=== PATIENT | male | born 1950 | race Two or more races ===

== ENCOUNTER 2017-11-19 00:11 | Inpatient (IN) | payer MEDICAID, OTHER ==
[~2017-11-19] VITALS: Ht 160 cm; Wt 50.5 kg
[2017-11-19] VITALS (10 sets, daily range): BP systolic 78–110; BP diastolic 60–79
[2017-11-19] MEDS ORDERED: SUCCINYLCHOLINE CHLORIDE 20 MG/ML 10ML VIAL IV ONE ×2 (00:51→01:00)
[2017-11-19] MEDS ORDERED: ETOMIDATE (2MG/ML) 20ML VIAL IV ONE ×2 (00:52→01:00)
[2017-11-19] MEDS ORDERED: MIDAZOLAM DRIP 50 mg/50mL 50 ML IV ONE (01:03)
[2017-11-19 01:08] LABS: Hematocrit 48.8 % (41.0-53.0); Hemoglobin 16.8 g/dL (13.5-17.5); Mean Corpuscular Hemoglobin 32.2 pg (28.0-32.0); Mean Corpuscular Hgb Conc. 34.4 g/dL (32.0-36.0); Mean Corpuscular Volume 93.7 fL (80.0-100.0); Platelet Count (auto) 222 10^3/uL (140-450); Red Blood Cells 5.21 10^6/uL (4.5-5.90); Red Cell Distribution Width 14.4 % (11.8-14.3); White Blood Cell 12.3 10^3/uL (4.4-10.8)
[2017-11-19 01:09] LABS: Band Neutrophils % (manual) 0; Basophils % (manual) 0 (0.0-2.0); Blast Cells 0; Metamyelocytes % 0; Myelocytes % 0; Promyelocytes % 0; Reactive Lymphocytes 0
[2017-11-19] MEDS: MIDAZOLAM DRIP 50 mg/50mL 50 ML IV SCH ×2 (01:14→21:19)
[2017-11-19 01:24] LABS: Albumin 2.7 g/dL (3.4-5.0); Calcium 8.9 mg/dL (8.5-10.1); Magnesium 2.7 mg/dL (1.6-2.6)
[2017-11-19 01:26] LABS: BUN/Creatinine Ratio 31.6
[2017-11-19 01:28] LABS: Bilirubin, Total 0.8 mg/dL (0.2-1.0); Total Protein 7.5 g/dL (6.4-8.2)
[2017-11-19 01:29] LABS: Potassium 5.6 mmol/L (3.5-5.1)
[2017-11-19 01:35] LABS: Eosinophils % (manual) 1 (0-7); Lymphocytes % (manual) 7 (10.0-50.0); Monocytes % (manual) 3 (0-12)
[2017-11-19] MEDS ORDERED: VANCOMYCIN 1GM/250ML 250 ML IV ONE (01:45)
[2017-11-19] MEDS ORDERED: SODIUM CHLORIDE 0.9% 1,000 ML IV ONE ×3 (01:45→05:00)
[2017-11-19] MEDS ORDERED: SODIUM CHLORIDE 0.9% 500 ML IV ONE ×2 (01:45→06:30)
[2017-11-19] MEDS ORDERED: PIPERACILLIN-TAZOB 3.375GM 50 ML IV ONE (01:45)
[2017-11-19 02:55] LABS: INR 1.1 (0.9-1.15); Partial Thromboplastin Time 29.4 sec (22.64-33.71)
[2017-11-19] MEDS ORDERED: SODIUM BICARBONATE 8.4 % INJ 50ML VIAL IV ONE (03:00)
[2017-11-19 03:02] LABS: Lactic Acid w/Reflex 3.4 mmol/L (0.4-2.0)
[2017-11-19 03:46] LABS: Albumin 2.2 g/dL (3.4-5.0); BUN/Creatinine Ratio 35.8
[2017-11-19 03:48] LABS: Bilirubin, Total 1.2 mg/dL (0.2-1.0); Total Protein 5.8 g/dL (6.4-8.2)
[2017-11-19 04:58] LABS: Urine Bacteria NONE SEEN /hpf (None Seen); Urine Blood TRACE /uL (Negative); Urine Hyaline Cast FEW /lpf (0 - 2); Urine Mucus FEW (None Seen); Urine Specific Gravity 1.021 (1.001-1.035); Urine WBC 8 /hpf (0 - 3)
[2017-11-19] MEDS: NOREPINEPHRINE 8 MG/250ML KIT 250 ML IV SCH ×2 (05:52→21:18)
[2017-11-19] MEDS ORDERED: LACTATED RINGER'S 1,000 ML IV ONE (06:15)
[2017-11-19] MEDS ORDERED: NITROGLYCERIN 0.4 MG SL TAB SL PRN (06:30)
[2017-11-19] MEDS ORDERED: ACETAMINOPHEN 325 MG TAB PO PRN (06:30)
[2017-11-19] MEDS ORDERED: VANCOMYCIN PER PHARMACY 0 MG IV SCH (06:30)
[2017-11-19] MEDS ORDERED: ONDANSETRON HCL 4 MG/2 ML VIAL IV PRN (06:30)
[2017-11-19] MEDS ORDERED: MORPHINE SULFATE 4 MG/ML SYR/VIAL IV PRN (06:30)
[2017-11-19] MEDS ORDERED: ENOXAPARIN SOD 60 MG/0.6 ML SYRINGE SC ONE (07:15)
[2017-11-19] MEDS ORDERED: SODIUM CHLORIDE 0.9% 1,000 ML IV SCH (07:30)
[2017-11-19] MEDS ORDERED: IOHEXOL 350 MG/ML 100ML IJ ONE (08:46)
[2017-11-19] MEDS: PIPERACILLIN-TAZOB 3.375GM 50 ML IV SCH ×3 (09:52→21:42)
[2017-11-19] MEDS ORDERED: ENOXAPARIN SOD 40 MG/0.4 ML SYRINGE SC SCH (10:00)
[2017-11-19] MEDS: IPRATROPIUM BROM 0.5 MG/2.5ML INH SOL NEB SCH ×4 (10:45→22:06)
[2017-11-19] MEDS: ALBUTEROL SULF 2.5 MG/0.5ML(0.5%) NEB SOLN NEB SCH ×4 (10:45→22:06)
[2017-11-19] MEDS: PANTOPRAZOLE 40 MG/10 ML VIAL IV SCH (11:13)
[2017-11-19] MEDS: SODIUM CHLORIDE 0.9% 1,000 ML IV SCH (15:26)
[2017-11-19 15:56] LABS: BUN/Creatinine Ratio 42.6; Calcium 7.6 mg/dL (8.5-10.1); Potassium 4.6 mmol/L (3.5-5.1)
[2017-11-20] VITALS (12 sets, daily range): BP systolic 82–134; BP diastolic 55–86
[2017-11-20] MEDS: SODIUM CHLORIDE 0.9% 1,000 ML IV SCH (01:33)
[2017-11-20] MEDS: IPRATROPIUM BROM 0.5 MG/2.5ML INH SOL NEB SCH ×6 (02:17→21:56)
[2017-11-20] MEDS: ALBUTEROL SULF 2.5 MG/0.5ML(0.5%) NEB SOLN NEB SCH ×6 (02:17→21:57)
[2017-11-20] MEDS: VANCOMYCIN 750 MG in D5W 5% 250 ML IV SCH (02:24)
[2017-11-20] MEDS ORDERED: fentaNYL Drip 2500mCg/250mlNS 250 ML IV SCH (04:13)
[2017-11-20] MEDS: PIPERACILLIN-TAZOB 3.375GM 50 ML IV SCH ×4 (04:32→22:14)
[2017-11-20] MEDS ORDERED: [UNRECOGNIZED DRUG - OTHER] IV SCH (04:33)
[2017-11-20] MEDS ORDERED: FENTANYL DRIP IV SCH (04:33)
[2017-11-20 06:20] LABS: Basophils # (auto) 0 uL; Basophils % (auto) 0.4 % (0.0-2.0); Eosinophils # (auto) 0 uL; Eosinophils % (auto) 0.2 % (0.0-7.0); Hematocrit 31.4 % (41.0-53.0); Lymphocytes # (auto) 0.2 uL; Lymphocytes % (auto) 2.5 % (10.0-50.0); Mean Corpuscular Hemoglobin 32.7 pg (28.0-32.0); Mean Corpuscular Hgb Conc. 35.1 g/dL (32.0-36.0); Mean Corpuscular Volume 93.1 fL (80.0-100.0); Monocytes # (auto) 0.3 uL; Monocytes % (auto) 3.7 % (0.0-12.0); Neutrophils # (auto) 8.4 uL; Neutrophils % (auto) 93.2 % (37.0-80.0); Platelet Count (auto) 217 10^3/uL (140-450); Red Blood Cells 3.37 10^6/uL (4.5-5.90); Red Cell Distribution Width 14.2 % (11.8-14.3)
[2017-11-20 06:31] LABS: Albumin 1.8 g/dL (3.4-5.0); BUN/Creatinine Ratio 32.8; Bilirubin, Total 0.5 mg/dL (0.2-1.0); Calcium 7.7 mg/dL (8.5-10.1); Total Protein 5.4 g/dL (6.4-8.2)
[2017-11-20 06:59] LABS: Urine WBC None Seen /hpf (0 - 3)
[2017-11-20 07:49] LABS: Urine Amorphous Crystal MANY /hpf (None Seen); Urine Bacteria NONE SEEN /hpf (None Seen); Urine Blood Negative /uL (Negative); Urine Specific Gravity 1.042 (1.001-1.035)
[2017-11-20] MEDS: D5 IV SCH ×2 (09:40→19:30)
[2017-11-20] MEDS: SODIUM BICARBONATE IV SCH ×2 (09:40→19:30)
[2017-11-20] MEDS: SOD CHLO IV SCH ×2 (09:40→19:30)
[2017-11-20] MEDS: PANTOPRAZOLE 40 MG/10 ML VIAL IV SCH (09:52)
[2017-11-20] MEDS: ENOXAPARIN SOD 30 MG/0.3 ML SYRINGE SC SCH (09:52)
[2017-11-21] VITALS (81 sets, daily range): BP systolic 73–161; BP diastolic 48–97
[2017-11-21] MEDS: MIDAZOLAM DRIP 50 mg/50mL 50 ML IV SCH (01:13)
[2017-11-21] MEDS: VANCOMYCIN 750 MG in D5W 5% 250 ML IV SCH (01:41)
[2017-11-21] MEDS: ALBUTEROL SULF 2.5 MG/0.5ML(0.5%) NEB SOLN NEB SCH ×6 (01:57→22:12)
[2017-11-21] MEDS: IPRATROPIUM BROM 0.5 MG/2.5ML INH SOL NEB SCH ×6 (01:57→22:12)
[2017-11-21] MEDS: PIPERACILLIN-TAZOB 3.375GM 50 ML IV SCH ×4 (03:00→21:00)
[2017-11-21] MEDS: NOREPINEPHRINE 8 MG/250ML KIT 250 ML IV SCH (05:14)
[2017-11-21 08:12] LABS: Basophils # (auto) 0 uL; Basophils % (auto) 0.1 % (0.0-2.0); Eosinophils # (auto) 0.1 uL; Eosinophils % (auto) 0.8 % (0.0-7.0); Hematocrit 32.6 % (41.0-53.0); Hemoglobin 11.2 g/dL (13.5-17.5); Lymphocytes # (auto) 0.2 uL; Lymphocytes % (auto) 2.2 % (10.0-50.0); Mean Corpuscular Hemoglobin 32.3 pg (28.0-32.0); Mean Corpuscular Hgb Conc. 34.4 g/dL (32.0-36.0); Monocytes # (auto) 0.2 uL; Monocytes % (auto) 2.5 % (0.0-12.0); Neutrophils # (auto) 8.8 uL; Neutrophils % (auto) 94.4 % (37.0-80.0); Platelet Count (auto) 172 10^3/uL (140-450); Red Blood Cells 3.46 10^6/uL (4.5-5.90); Red Cell Distribution Width 14.5 % (11.8-14.3); White Blood Cell 9.3 10^3/uL (4.4-10.8)
[2017-11-21 08:37] LABS: Calcium 7.2 mg/dL (8.5-10.1); Magnesium 1.7 mg/dL (1.6-2.6); Potassium 3.1 mmol/L (3.5-5.1)
[2017-11-21] MEDS ORDERED: DEXTROSE (50%) 50ML SYRG IV PRN (08:45)
[2017-11-21] MEDS: SOD CHL 0.9%/ KCL 40MEQ 1,000 ML IV SCH ×2 (10:50→21:00)
[2017-11-21] MEDS: PANTOPRAZOLE 40 MG/10 ML VIAL IV SCH (10:50)
[2017-11-21] MEDS: ENOXAPARIN SOD 30 MG/0.3 ML SYRINGE SC SCH (10:51)
[2017-11-21] MEDS: ACCU-CHEK COMFORT CURVE STRIP VI SCH ×2 (12:00→18:06)
[2017-11-21] MEDS ORDERED: POTASSIUM CHL 10% (20 MEQ/15ML) 15ml ORAL SOLN GT ONE (12:30)
[2017-11-21] MEDS ORDERED: LIDOCAINE 1% HCL (LOCAL ANESTH.) INJ 20ML MDV ID ONE (13:00)
[2017-11-21] MEDS: InsuLIN REG 1unit/0.01ml Soln (100units/ml) SC SCH ×2 (13:30→18:00)
[2017-11-21] MEDS: DEXAMETHASONE SOD PHOS 4 MG/1ML SDV INJ IV SCH ×2 (16:51→22:00)
[2017-11-21] MEDS: ALBUMIN 25% 100 ML IV SCH (18:00)
[2017-11-21] MEDS: ENOXAPARIN SOD 40 MG/0.4 ML SYRINGE SC SCH (22:00)
[2017-11-21] MEDS: SODIUM CHLOR 0.9% PF (SALINE LOCK) 10ML VIAL IV SCH (22:00)
[2017-11-21] MEDS ORDERED: ACETAMINOPHEN 650 mg PER 20 mL UD ONE (23:27)
[2017-11-22] VITALS (75 sets, daily range): BP systolic 109–153; BP diastolic 51–84
[2017-11-22] MEDS: InsuLIN REG 1unit/0.01ml Soln (100units/ml) SC SCH ×4 (00:46→18:02)
[2017-11-22] MEDS: ACCU-CHEK COMFORT CURVE STRIP VI SCH ×4 (00:46→17:58)
[2017-11-22 01:03] LABS: Basophils # (auto) 0 uL; Basophils % (auto) 0.3 % (0.0-2.0); Eosinophils # (auto) 0 uL; Eosinophils % (auto) 0.2 % (0.0-7.0); Hematocrit 28.3 % (41.0-53.0); Hemoglobin 9.8 g/dL (13.5-17.5); Lymphocytes # (auto) 0.1 uL; Lymphocytes % (auto) 1.1 % (10.0-50.0); Mean Corpuscular Hemoglobin 32.6 pg (28.0-32.0); Mean Corpuscular Hgb Conc. 34.7 g/dL (32.0-36.0); Mean Corpuscular Volume 94.1 fL (80.0-100.0); Monocytes # (auto) 0.1 uL; Monocytes % (auto) 0.9 % (0.0-12.0); Neutrophils # (auto) 9.4 uL; Neutrophils % (auto) 97.5 % (37.0-80.0); Platelet Count (auto) 145 10^3/uL (140-450); Red Blood Cells 3.01 10^6/uL (4.5-5.90); Red Cell Distribution Width 14.4 % (11.8-14.3); White Blood Cell 9.6 10^3/uL (4.4-10.8)
[2017-11-22 01:13] LABS: BUN/Creatinine Ratio 33.3; Calcium 7.4 mg/dL (8.5-10.1); Magnesium 1.7 mg/dL (1.6-2.6); Potassium 3.7 mmol/L (3.5-5.1)
[2017-11-22] MEDS: ALBUMIN 25% 100 ML IV SCH ×3 (01:15→12:09)
[2017-11-22] MEDS: VANCOMYCIN 750 MG in D5W 5% 250 ML IV SCH (02:00)
[2017-11-22] MEDS: ALBUTEROL SULF 2.5 MG/0.5ML(0.5%) NEB SOLN NEB SCH ×6 (02:11→22:33)
[2017-11-22] MEDS: IPRATROPIUM BROM 0.5 MG/2.5ML INH SOL NEB SCH ×6 (02:11→22:33)
[2017-11-22] MEDS: PIPERACILLIN-TAZOB 3.375GM 50 ML IV SCH ×4 (03:00→20:49)
[2017-11-22] MEDS: SOD CHL 0.9%/ KCL 40MEQ 1,000 ML IV SCH (06:00)
[2017-11-22] MEDS: ENOXAPARIN SOD 40 MG/0.4 ML SYRINGE SC SCH ×2 (09:30→22:05)
[2017-11-22] MEDS: FLUCONAZOLE 200MG/100ML 100 ML IV SCH (09:30)
[2017-11-22] MEDS: DEXAMETHASONE SOD PHOS 4 MG/1ML SDV INJ IV SCH ×2 (09:30→22:04)
[2017-11-22] MEDS: SODIUM CHLOR 0.9% PF (SALINE LOCK) 10ML VIAL IV SCH ×2 (09:31→22:04)
[2017-11-22] MEDS: PANTOPRAZOLE 40 MG/10 ML VIAL IV SCH (09:31)
[2017-11-22] MEDS: MAGNESIUM SULFATE 1GM/100ML 100 ML IV SCH ×2 (09:35→11:23)
[2017-11-22] MEDS: MORPHINE SULFATE 4 MG/ML SYR/VIAL IV SCH ×4 (09:35→22:04)
[2017-11-22] MEDS: MIDAZOLAM DRIP 50 mg/50mL 50 ML IV SCH (10:00)
[2017-11-22] MEDS: NOREPINEPHRINE 8 MG/250ML KIT 250 ML IV SCH (10:30)
[2017-11-22] MEDS ORDERED: SULF400T11 PO (11:33)
[2017-11-22] MEDS ORDERED: ESOM20CA PO (11:33)
[2017-11-22] MEDS ORDERED: DEXA2TAB8 PO (11:33)
[2017-11-22] MEDS: VANCOMYCIN 1GM/250ML 250 ML IV SCH (14:34)
[2017-11-22] MEDS: Nutren Pulmonary 1 Liter GT SCH (21:09)
[2017-11-23] VITALS (61 sets, daily range): BP systolic 91–141; BP diastolic 50–77
[2017-11-23] MEDS: InsuLIN REG 1unit/0.01ml Soln (100units/ml) SC SCH ×4 (00:21→17:53)
[2017-11-23] MEDS: ACCU-CHEK COMFORT CURVE STRIP VI SCH ×4 (00:21→18:36)
[2017-11-23] MEDS: VANCOMYCIN 1GM/250ML 250 ML IV SCH ×2 (01:58→15:10)
[2017-11-23] MEDS: MORPHINE SULFATE 4 MG/ML SYR/VIAL IV SCH ×6 (02:00→22:16)
[2017-11-23] MEDS: IPRATROPIUM BROM 0.5 MG/2.5ML INH SOL NEB SCH ×6 (02:18→22:18)
[2017-11-23] MEDS: ALBUTEROL SULF 2.5 MG/0.5ML(0.5%) NEB SOLN NEB SCH ×6 (02:18→22:18)
[2017-11-23] MEDS: PIPERACILLIN-TAZOB 3.375GM 50 ML IV SCH ×4 (02:50→21:30)
[2017-11-23] MEDS: MIDAZOLAM DRIP 50 mg/50mL 50 ML IV SCH ×3 (04:47→22:17)
[2017-11-23] MEDS: NOREPINEPHRINE 8 MG/250ML KIT 250 ML IV SCH (05:14)
[2017-11-23 05:45] LABS: Basophils # (auto) 0 uL; Basophils % (auto) 0.3 % (0.0-2.0); Eosinophils # (auto) 0 uL; Hematocrit 25.2 % (41.0-53.0); Hemoglobin 8.9 g/dL (13.5-17.5); Lymphocytes # (auto) 0.1 uL; Lymphocytes % (auto) 1.4 % (10.0-50.0); Mean Corpuscular Hemoglobin 33.1 pg (28.0-32.0); Mean Corpuscular Hgb Conc. 35.3 g/dL (32.0-36.0); Mean Corpuscular Volume 93.6 fL (80.0-100.0); Monocytes # (auto) 0.3 uL; Monocytes % (auto) 2.4 % (0.0-12.0); Neutrophils % (auto) 95.9 % (37.0-80.0); Nucleated Red Blood Cells % 0.1 %; Platelet Count (auto) 153 10^3/uL (140-450); Red Blood Cells 2.69 10^6/uL (4.5-5.90); Red Cell Distribution Width 14.5 % (11.8-14.3); White Blood Cell 10.4 10^3/uL (4.4-10.8)
[2017-11-23 06:04] LABS: Calcium 7.6 mg/dL (8.5-10.1); Magnesium 2.2 mg/dL (1.6-2.6); Phosphorus 1.2 mg/dL (2.5-4.90); Potassium 3.7 mmol/L (3.5-5.1)
[2017-11-23] MEDS ORDERED: LIDOCAINE 2%HCL (LOCAL ANESTH.) INJ 20ML MDV ONE (08:19)
[2017-11-23] MEDS ORDERED: SODIUM CHLORIDE LOCK 20 ML ONE (08:19)
[2017-11-23] MEDS ORDERED: BENZOCAINE (DENTAL) 20 % SPRAY 60ML MT ONE (08:19)
[2017-11-23] MEDS ORDERED: EPINEPHrine HCL 1 MG/1 ML AMP ONE (08:20)
[2017-11-23] MEDS ORDERED: LIDOCAINE HCL 2% TOP JELLY 5ML TOP ONE (08:20)
[2017-11-23] MEDS ORDERED: MIDAZOLAM HCL 5 MG/ML-1ML VIAL ONE (08:20)
[2017-11-23 10:03] LABS: INR 0.97 (0.9-1.15); Prothrombin Time 10.6 sec (9.37-12.3)
[2017-11-23] MEDS: SODIUM CHLOR 0.9% PF (SALINE LOCK) 10ML VIAL IV SCH ×2 (10:21→22:16)
[2017-11-23] MEDS: DEXAMETHASONE SOD PHOS 4 MG/1ML SDV INJ IV SCH ×2 (10:27→22:16)
[2017-11-23] MEDS: FLUCONAZOLE 200MG/100ML 100 ML IV SCH (10:27)
[2017-11-23] MEDS: PANTOPRAZOLE 40 MG/10 ML VIAL IV SCH (10:27)
[2017-11-23] MEDS: MORPHINE SULFATE 4 MG/ML SYR/VIAL IV PRN ×2 (11:06→14:15)
[2017-11-23] MEDS: ENOXAPARIN SOD 40 MG/0.4 ML SYRINGE SC SCH ×2 (13:56→22:16)
[2017-11-23] MEDS: fentaNYL Drip 2500mCg/250mlNS 250 ML IV SCH (16:40)
[2017-11-23] MEDS ORDERED: MICAFUNGIN SODIUM 100 MG in SODIUM CHL 0.9% 100 ML IV SCH (17:00)
[2017-11-24] VITALS (57 sets, daily range): BP systolic 111–148; BP diastolic 38–88
[2017-11-24] MEDS: ACCU-CHEK COMFORT CURVE STRIP VI SCH ×4 (00:01→17:49)
[2017-11-24] MEDS: InsuLIN REG 1unit/0.01ml Soln (100units/ml) SC SCH ×4 (00:02→17:49)
[2017-11-24] MEDS: VANCOMYCIN 1GM/250ML 250 ML IV SCH ×2 (01:55→14:06)
[2017-11-24] MEDS: MORPHINE SULFATE 4 MG/ML SYR/VIAL IV SCH ×6 (02:15→21:43)
[2017-11-24] MEDS: ALBUTEROL SULF 2.5 MG/0.5ML(0.5%) NEB SOLN NEB SCH ×5 (02:16→22:18)
[2017-11-24] MEDS: IPRATROPIUM BROM 0.5 MG/2.5ML INH SOL NEB SCH ×5 (02:16→22:18)
[2017-11-24] MEDS: PIPERACILLIN-TAZOB 3.375GM 50 ML IV SCH ×4 (03:00→21:09)
[2017-11-24] MEDS: Nutren Pulmonary 1 Liter GT SCH (03:00)
[2017-11-24] MEDS: MIDAZOLAM DRIP 50 mg/50mL 50 ML IV SCH ×3 (04:00→19:24)
[2017-11-24 04:03] LABS: Basophils # (auto) 0 uL; Basophils % (auto) 0.4 % (0.0-2.0); Eosinophils # (auto) 0 uL; Hematocrit 26.2 % (41.0-53.0); Hemoglobin 9.2 g/dL (13.5-17.5); Lymphocytes # (auto) 0.1 uL; Lymphocytes % (auto) 1.3 % (10.0-50.0); Mean Corpuscular Hemoglobin 32.8 pg (28.0-32.0); Mean Corpuscular Hgb Conc. 35.2 g/dL (32.0-36.0); Mean Corpuscular Volume 93.1 fL (80.0-100.0); Monocytes # (auto) 0.3 uL; Monocytes % (auto) 3.4 % (0.0-12.0); Neutrophils # (auto) 9.5 uL; Neutrophils % (auto) 94.9 % (37.0-80.0); Platelet Count (auto) 159 10^3/uL (140-450); Red Blood Cells 2.82 10^6/uL (4.5-5.90); Red Cell Distribution Width 14.7 % (11.8-14.3)
[2017-11-24 04:15] LABS: BUN/Creatinine Ratio 24.2; Calcium 7.8 mg/dL (8.5-10.1); Potassium 3.6 mmol/L (3.5-5.1)
[2017-11-24] MEDS: NOREPINEPHRINE 8 MG/250ML KIT 250 ML IV SCH (05:14)
[2017-11-24] MEDS: DEXAMETHASONE SOD PHOS 4 MG/1ML SDV INJ IV SCH ×2 (09:40→21:43)
[2017-11-24] MEDS: SODIUM CHLOR 0.9% PF (SALINE LOCK) 10ML VIAL IV SCH ×2 (09:40→21:43)
[2017-11-24] MEDS: ENOXAPARIN SOD 40 MG/0.4 ML SYRINGE SC SCH ×2 (09:40→21:43)
[2017-11-24] MEDS: PANTOPRAZOLE 40 MG/10 ML VIAL IV SCH (09:40)
[2017-11-24] MEDS: fentaNYL Drip 2500mCg/250mlNS 250 ML IV SCH (10:32)
[2017-11-25] VITALS (55 sets, daily range): BP systolic 107–152; BP diastolic 54–87
[2017-11-25] MEDS: ACCU-CHEK COMFORT CURVE STRIP VI SCH ×4 (00:14→18:00)
[2017-11-25] MEDS: InsuLIN REG 1unit/0.01ml Soln (100units/ml) SC SCH ×4 (00:14→18:00)
[2017-11-25] MEDS: VANCOMYCIN 1GM/250ML 250 ML IV SCH ×2 (02:00→14:05)
[2017-11-25] MEDS: MORPHINE SULFATE 4 MG/ML SYR/VIAL IV SCH ×4 (02:00→13:30)
[2017-11-25] MEDS: IPRATROPIUM BROM 0.5 MG/2.5ML INH SOL NEB SCH ×6 (02:17→22:07)
[2017-11-25] MEDS: ALBUTEROL SULF 2.5 MG/0.5ML(0.5%) NEB SOLN NEB SCH ×6 (02:17→22:07)
[2017-11-25] MEDS: PIPERACILLIN-TAZOB 3.375GM 50 ML IV SCH ×2 (03:12→10:04)
[2017-11-25 03:46] LABS: Basophils # (auto) 0.1 uL; Basophils % (auto) 0.6 % (0.0-2.0); Eosinophils # (auto) 0 uL; Hematocrit 27.9 % (41.0-53.0); Hemoglobin 9.8 g/dL (13.5-17.5); Lymphocytes # (auto) 0.1 uL; Lymphocytes % (auto) 1.3 % (10.0-50.0); Mean Corpuscular Hemoglobin 32.7 pg (28.0-32.0); Mean Corpuscular Hgb Conc. 35.1 g/dL (32.0-36.0); Mean Corpuscular Volume 93.3 fL (80.0-100.0); Monocytes # (auto) 0.4 uL; Neutrophils # (auto) 9.6 uL; Neutrophils % (auto) 94.1 % (37.0-80.0); Nucleated Red Blood Cells % 0.1 %; Platelet Count (auto) 176 10^3/uL (140-450); Red Blood Cells 2.99 10^6/uL (4.5-5.90); Red Cell Distribution Width 14.8 % (11.8-14.3); White Blood Cell 10.2 10^3/uL (4.4-10.8)
[2017-11-25 04:01] LABS: Albumin 2.1 g/dL (3.4-5.0); Potassium 3.8 mmol/L (3.5-5.1)
[2017-11-25 04:08] LABS: BUN/Creatinine Ratio 37.5; Calcium 7.8 mg/dL (8.5-10.1); Total Protein 5.3 g/dL (6.4-8.2)
[2017-11-25 04:14] LABS: Bilirubin, Total 0.4 mg/dL (0.2-1.0)
[2017-11-25] MEDS: NOREPINEPHRINE 8 MG/250ML KIT 250 ML IV SCH (05:14)
[2017-11-25] MEDS: SODIUM CHLOR 0.9% PF (SALINE LOCK) 10ML VIAL IV SCH ×2 (10:03→22:00)
[2017-11-25] MEDS: PANTOPRAZOLE 40 MG/10 ML VIAL IV SCH (10:03)
[2017-11-25] MEDS: MIDAZOLAM DRIP 50 mg/50mL 50 ML IV SCH ×2 (10:03→19:42)
[2017-11-25] MEDS: ENOXAPARIN SOD 40 MG/0.4 ML SYRINGE SC SCH ×2 (10:03→22:00)
[2017-11-25] MEDS: DEXAMETHASONE SOD PHOS 4 MG/1ML SDV INJ IV SCH ×2 (10:03→21:50)
[2017-11-25] MEDS: fentaNYL Drip 2500mCg/250mlNS 250 ML IV SCH (10:32)
[2017-11-25] MEDS: LEVOFLOXACIN 500MG 100 ML IV SCH (16:39)
[2017-11-25] MEDS: MORPHINE SULFATE 4 MG/ML SYR/VIAL IV PRN (20:00)
[2017-11-26] VITALS (52 sets, daily range): BP systolic 93–182; BP diastolic 57–101
[2017-11-26] MEDS: InsuLIN REG 1unit/0.01ml Soln (100units/ml) SC SCH ×4 (00:30→17:46)
[2017-11-26] MEDS: ACCU-CHEK COMFORT CURVE STRIP VI SCH ×4 (00:30→17:46)
[2017-11-26] MEDS: MORPHINE SULFATE 4 MG/ML SYR/VIAL IV PRN (00:31)
[2017-11-26] MEDS: IPRATROPIUM BROM 0.5 MG/2.5ML INH SOL NEB SCH ×6 (02:14→22:07)
[2017-11-26] MEDS: VANCOMYCIN 1GM/250ML 250 ML IV SCH (02:14)
[2017-11-26] MEDS: ALBUTEROL SULF 2.5 MG/0.5ML(0.5%) NEB SOLN NEB SCH ×6 (02:14→22:07)
[2017-11-26 04:56] LABS: Hematocrit 28.3 % (41.0-53.0); Hemoglobin 9.6 g/dL (13.5-17.5); Mean Corpuscular Hemoglobin 32.3 pg (28.0-32.0); Mean Corpuscular Hgb Conc. 34.1 g/dL (32.0-36.0); Mean Corpuscular Volume 94.8 fL (80.0-100.0); Platelet Count (auto) 181 10^3/uL (140-450); Red Blood Cells 2.98 10^6/uL (4.5-5.90); Red Cell Distribution Width 14.7 % (11.8-14.3); White Blood Cell 9.8 10^3/uL (4.4-10.8)
[2017-11-26] MEDS: NOREPINEPHRINE 8 MG/250ML KIT 250 ML IV SCH (05:14)
[2017-11-26 05:18] LABS: Calcium 7.8 mg/dL (8.5-10.1); Potassium 3.8 mmol/L (3.5-5.1)
[2017-11-26 05:45] LABS: Basophils % (manual) 0 (0.0-2.0); Eosinophils % (manual) 0 (0-7)
[2017-11-26 05:46] LABS: Blast Cells 0; Metamyelocytes % 0; Myelocytes % 0; Promyelocytes % 0; Reactive Lymphocytes 0
[2017-11-26 06:44] LABS: Band Neutrophils % (manual) 5; Lymphocytes % (manual) 1 (10.0-50.0); Monocytes % (manual) 1 (0-12)
[2017-11-26] MEDS: SODIUM CHLOR 0.9% PF (SALINE LOCK) 10ML VIAL IV SCH ×2 (09:22→22:00)
[2017-11-26] MEDS: LEVOFLOXACIN 500MG 100 ML IV SCH (09:22)
[2017-11-26] MEDS: PANTOPRAZOLE 40 MG/10 ML VIAL IV SCH (09:22)
[2017-11-26] MEDS: DEXAMETHASONE SOD PHOS 4 MG/1ML SDV INJ IV SCH ×2 (09:22→23:37)
[2017-11-26] MEDS ORDERED: VANCOMYCIN 1GM/250ML 250 ML IV SCH (10:00)
[2017-11-26] MEDS: ENOXAPARIN SOD 40 MG/0.4 ML SYRINGE SC SCH (10:00)
[2017-11-26] MEDS: fentaNYL Drip 2500mCg/250mlNS 250 ML IV SCH (10:32)
[2017-11-27] VITALS (38 sets, daily range): BP systolic 100–167; BP diastolic 61–98
[2017-11-27] MEDS: ALBUTEROL SULF 2.5 MG/0.5ML(0.5%) NEB SOLN NEB SCH ×6 (02:20→21:53)
[2017-11-27] MEDS: IPRATROPIUM BROM 0.5 MG/2.5ML INH SOL NEB SCH ×6 (02:20→21:53)
[2017-11-27] MEDS: ACCU-CHEK COMFORT CURVE STRIP VI SCH ×4 (06:00→18:21)
[2017-11-27] MEDS: InsuLIN REG 1unit/0.01ml Soln (100units/ml) SC SCH ×4 (06:00→18:00)
[2017-11-27] MEDS: MORPHINE SULFATE 4 MG/ML SYR/VIAL IV PRN ×2 (09:23→16:50)
[2017-11-27] MEDS: PANTOPRAZOLE 40 MG/10 ML VIAL IV SCH (09:39)
[2017-11-27] MEDS: DEXAMETHASONE SOD PHOS 4 MG/1ML SDV INJ IV SCH (09:39)
[2017-11-27] MEDS: SODIUM CHLOR 0.9% PF (SALINE LOCK) 10ML VIAL IV SCH (09:39)
[2017-11-27] MEDS: LEVOFLOXACIN 500MG 100 ML IV SCH (09:39)
[2017-11-27] MEDS ORDERED: ONDANSETRON ODT 4 MG TAB PO PRN (17:30)
[2017-11-27] MEDS: MICAFUNGIN SODIUM 100 MG in SODIUM CHL 0.9% 100 ML IV SCH (18:00)
[2017-11-27] MEDS ORDERED: cefTRIAXone 1GM/10ml IVPUSH 10 ML IV ONE (19:37)
[2017-11-27] MEDS: APIXABAN 5 MG TAB PO SCH (21:30)
[2017-11-27] MEDS ORDERED: ENOXAPARIN SOD 60 MG/0.6 ML SYRINGE SC SCH (22:00)
[2017-11-28] VITALS: BP 135/74
[2017-11-28] MEDS: SODIUM CHLOR 0.9% PF (SALINE LOCK) 10ML VIAL IV SCH ×3 (02:38→22:00)
[2017-11-28] MEDS: ACCU-CHEK COMFORT CURVE STRIP VI SCH ×2 (02:39→06:28)
[2017-11-28 04:00] VITALS: BP 143/72
[2017-11-28] MEDS: InsuLIN REG 1unit/0.01ml Soln (100units/ml) SC SCH ×2 (06:00)
[2017-11-28] MEDS: ALBUTEROL SULF 2.5 MG/0.5ML(0.5%) NEB SOLN NEB SCH ×6 (06:07→22:21)
[2017-11-28] MEDS: IPRATROPIUM BROM 0.5 MG/2.5ML INH SOL NEB SCH ×6 (06:07→22:21)
[2017-11-28 08:00] VITALS: BP 132/73
[2017-11-28] MEDS: LEVOFLOXACIN 500MG 100 ML IV SCH (10:23)
[2017-11-28] MEDS: PANTOPRAZOLE 40 MG/10 ML VIAL IV SCH (10:23)
[2017-11-28] MEDS: DEXAMETHASONE 4 MG TAB PO SCH (10:23)
[2017-11-28] MEDS: APIXABAN 5 MG TAB PO SCH ×2 (10:24→22:00)
[2017-11-28 11:54] VITALS: BP 108/53
[2017-11-28 15:50] VITALS: BP 115/54
[2017-11-28] MEDS: MICAFUNGIN SODIUM 100 MG in SODIUM CHL 0.9% 100 ML IV SCH (17:39)
[2017-11-28 19:50] VITALS: BP 105/58
[2017-11-29] MEDS: ALBUTEROL SULF 2.5 MG/0.5ML(0.5%) NEB SOLN NEB SCH ×4 (02:20→14:28)
[2017-11-29] MEDS: IPRATROPIUM BROM 0.5 MG/2.5ML INH SOL NEB SCH ×4 (02:20→14:28)
[2017-11-29 04:00] VITALS: BP 104/60
[2017-11-29] MEDS: MORPHINE SULFATE 4 MG/ML SYR/VIAL IV PRN (04:45)
[2017-11-29 06:06] LABS: Basophils # (auto) 0.1 uL; Eosinophils # (auto) 0 uL; Eosinophils % (auto) 0.2 % (0.0-7.0); Hematocrit 30.3 % (41.0-53.0); Hemoglobin 10.3 g/dL (13.5-17.5); Lymphocytes # (auto) 0.2 uL; Lymphocytes % (auto) 1.4 % (10.0-50.0); Mean Corpuscular Hemoglobin 32.4 pg (28.0-32.0); Mean Corpuscular Hgb Conc. 33.8 g/dL (32.0-36.0); Mean Corpuscular Volume 95.7 fL (80.0-100.0); Monocytes # (auto) 0.3 uL; Monocytes % (auto) 2.1 % (0.0-12.0); Neutrophils # (auto) 12.2 uL; Neutrophils % (auto) 95.3 % (37.0-80.0); Platelet Count (auto) 254 10^3/uL (140-450); Red Blood Cells 3.17 10^6/uL (4.5-5.90); Red Cell Distribution Width 15.1 % (11.8-14.3); White Blood Cell 12.8 10^3/uL (4.4-10.8)
[2017-11-29 06:09] LABS: Calcium 7.9 mg/dL (8.5-10.1); Potassium 3.7 mmol/L (3.5-5.1)
[2017-11-29 06:11] LABS: BUN/Creatinine Ratio 73.9
[2017-11-29] MEDS ORDERED: DEXTROSE 50% SYRINGE 50 ML IV ONE (06:31)
[2017-11-29] MEDS ORDERED: DEXTROSE (50%) 50ML SYRG IV ONE (07:30)
[2017-11-29] MEDS: LEVOFLOXACIN 500MG 100 ML IV SCH (10:33)
[2017-11-29] MEDS: DEXAMETHASONE 4 MG TAB PO SCH (10:34)
[2017-11-29] MEDS: APIXABAN 5 MG TAB PO SCH (10:34)
[2017-11-29] MEDS: SODIUM CHLOR 0.9% PF (SALINE LOCK) 10ML VIAL IV SCH (10:34)
[2017-11-29] MEDS: PANTOPRAZOLE 40 MG/10 ML VIAL IV SCH (10:34)
[2017-11-29 11:50] VITALS: BP 95/53
[2017-11-29 15:46] VITALS: BP 105/56
[2017-11-29 16:13] VITALS: BP 105/56
[2017-12-04] MEDS ORDERED: APIXABAN 5 MG TAB PO SCH (22:00)
== END 2017-11-29 15:30 | disposition hospice, home (50) | DRG 720 ==
LOC: ER 00:11 → EDBD 00:11 → OVERFLOW 00:12 → ICU WEST 11-21 04:01 → DOU IN ICU 11-27 17:45
PROVIDERS: ADMIT Nurse Practitioner; ATTEND Internal Medicine
PROC: 0BH17EZ Insertion of Endotracheal Airway into Trachea, Via Natural or Artificial Opening (ICD-10-PCS; principal; 2017-11-19)
PROC: 5A1955Z Respiratory Ventilation, Greater than 96 Consecutive Hours (ICD-10-PCS; 2017-11-19)
PROC: 05HY33Z Insertion of Infusion Device into Upper Vein, Percutaneous Approach (ICD-10-PCS; 2017-11-19)
PROC: 0BDH8ZX Extraction of Lung Lingula, Via Natural or Artificial Opening Endoscopic, Diagnostic (ICD-10-PCS; 2017-11-23)
PROC: 02HV33Z Insertion of Infusion Device into Superior Vena Cava, Percutaneous Approach (ICD-10-PCS; 2017-11-23)
PROC: 0B978ZX Drainage of Left Main Bronchus, Via Natural or Artificial Opening Endoscopic, Diagnostic (ICD-10-PCS; 2017-11-23)
DX: A41.53 Sepsis due to Serratia (principal); J96.01 Acute respiratory failure with hypoxia; J18.1 Lobar pneumonia, unspecified organism; N17.9 Acute kidney failure, unspecified; T17.590A Other foreign object in bronchus causing asphyxiation, initial encounter; I11.0 Hypertensive heart disease with heart failure; J44.0 Chronic obstructive pulmonary disease with (acute) lower respiratory infection; R64 Cachexia; E44.0 Moderate protein-calorie malnutrition; C79.31 Secondary malignant neoplasm of brain; I50.9 Heart failure, unspecified; Z51.5 Encounter for palliative care; C79.51 Secondary malignant neoplasm of bone; C34.90 Malignant neoplasm of unspecified part of unspecified bronchus or lung; E86.9 Volume depletion, unspecified; E87.5 Hyperkalemia; R59.0 Localized enlarged lymph nodes; R73.9 Hyperglycemia, unspecified; R74.8 Abnormal levels of other serum enzymes; R65.20 Severe sepsis without septic shock; E87.1 Hypo-osmolality and hyponatremia; C79.70 Secondary malignant neoplasm of unspecified adrenal gland; X58.XXXA Exposure to other specified factors, initial encounter; Y93.89 Activity, other specified; Y92.89 Other specified places as the place of occurrence of the external cause; Y99.8 Other external cause status; I82.621 Acute embolism and thrombosis of deep veins of right upper extremity; Z79.01 Long term (current) use of anticoagulants; Z68.1 Body mass index [BMI] 19.9 or less, adult; Z92.3 Personal history of irradiation; Z92.21 Personal history of antineoplastic chemotherapy; Z87.891 Personal history of nicotine dependence; Z79.899 Other long term (current) drug therapy
CPT/HCPCS: 31500; 31622; 36415; 36556; 36569; 36600; 51702; 71045; 71275; 80048; 80053; 80202; 81001; 82533; 82805; 82962; 83605; 83735; 83880; 84100; 84484; 85007; 85025; 85027; 85379; 85610; 85730; 86635; 87040; 87070; 87077; 87081; 87086; 87186; 87205; 93005; 93930; 93970; 93971; 94003; 94640; 96361; 96365; 96367; 96375; 97163; 99291; C9113; G0378; J0171; J0330; J1100; J1450; J1815; J1956; J2248; J2250; J2543; J3010; J7042; J7060